=== PATIENT | male | born 1955 | race Caucasian/White ===

== ENCOUNTER 2016-09-17 08:28 | Inpatient (IN) | payer MEDICARE, BC ==
[2016-09-17] MEDS ORDERED: Magnesium Hydroxide LIQ* 30 ML UDC PO PRN (11:47)
[2016-09-17] MEDS ORDERED: Bisacodyl SUPP* 10 MG SUPP PR PRN (11:47)
[2016-09-17] MEDS ORDERED: Dextrose 50% Syringe 50 ML* 25 GM/50 ML SYRINGE IV PUSH PRN ×2 (11:59→12:01)
[2016-09-17] MEDS ORDERED: Insulin LISPRO* 1 UNITS UNIT SUBCUT ONE ×3 (12:02→17:00)
[2016-09-17] MEDS: Gabapentin CAP(*) 300 MG PO SCH ×3 (14:54→22:11)
[2016-09-17] MEDS: Heparin VIAL(*) 5000 UNITS/ML VIAL (FIVE THOUSAND) SUBCUT SCH ×2 (14:58→21:03)
[2016-09-17] MEDS ORDERED: Insulin LISPRO* 1 UNITS UNIT SUBCUT SCH ×2 (17:00)
[2016-09-17] MEDS: Insulin GLARGINE(*) 1 UNITS UNIT SUBCUT SCH (20:49)
[2016-09-17] MEDS ORDERED: Senna TAB PO PRN (21:00)
[2016-09-17] MEDS: Amoxicillin/Clavulanate TAB* 875 MG PO SCH (21:03)
[2016-09-17] MEDS: Docusate CAP* 100 MG PO SCH (22:53)
--- NOTE | 2016-09-18 00:19 | HP ---
ADMISSION HISTORY AND PHYSICAL: DATE OF ADMISSION: 09/17/16 REASON FOR ADMISSION: Right fvmvi-zvf-tqoe amputation. HISTORY OF PRESENT ILLNESS: Naveen Meeks is a 61-year-old insulin-dependent diabetic. He has had diabetes for about the past 12 years. He follows with Dr. Bear in [place]. He has multiple complications from diabetes including diabetic peripheral neuropathy. He apparently was involved in an accident about 2-1/2 years ago, where something was dropped on his right foot. He has had multiple surgeries on his right foot with at least 3 toe amputations. He has had recurrent infections over the last several years. [facility]. He saw a doctor at [facility], Dr. Felder. Dr. Felder recommended a below- the-knee amputation. He was admitted to [facility] on September 03. He was taken to the operating room for right giqik-kih-varc amputation that day. He went to the nursing floor and was getting over his surgery, but then developed left wrist pain, where an IV site was. There was a lot of concern for septic arthritis. The joint was aspirated and he underwent a wrist arthroscopy, neither of which demonstrated signs of infection. He was given a course of Augmentin. He was then felt to be medically stable to begin rehabilitation. He is now being admitted for inpatient rehab, so that he might return to independent living. PAST MEDICAL HISTORY: Significant for the aforementioned diabetes. He has a history of diabetic peripheral neuropathy as well. He has a Charcot foot on the left side. He has had chronic osteomyelitis on the right foot. He has a history of obesity. CURRENT MEDICATIONS: Include Lantus insulin 60 mg twice a day. He is also on lispro insulin, he gets 30 mg with each meal. He is on heparin for DVT prophylaxis. He takes lisinopril for blood pressure, Lasix, Neurontin 1200 mg 4 times a day, and he is on aspirin 81 mg daily. ALLERGIES: The patient has no known drug allergies. SOCIAL HISTORY: He is a nonsmoker and nondrinker. Lives by himself in a house on [address], but he stays on one floor. He has friends who are willing to get groceries for him. PHYSICAL EXAMINATION VITAL SIGNS: The patient's temperature is 98.1, blood pressure is 129/75, pulse 71, and respirations 18. HEENT: Extraocular movements are intact. Tongue is midline. NECK: Supple. LUNGS: Sounded clear to auscultation bilaterally. HEART: Sounds were regular. S1, S2 were audible. ABDOMEN: Soft and nontender. EXTREMITIES: His right leg has a oqlbz-wxl-pgzy amputation. The left wrist was examined. It looked clean. Peripheral pulses were intact in that wrists. His left foot was examined. He has a collapsed arch on the left foot. NEUROLOGIC: He is awake, alert, and oriented. He had decreased sensation over the left foot. Muscle strength is about 4+/5 in upper and lower extremities. FUNCTIONAL EXAM: He transfers with moderate amount of assistance. ASSESSMENT: Right aakjc-ywn-mbwz amputation. PLAN/RECOMMENDATIONS: We are going to integrate him into a comprehensive and therapeutic rehab program. We will have the following goals: 1. Physical Therapy will work with the patient. They are going to work on functional transfer training, ambulation training with a walker. 2. Occupational Therapy will see the patient. They are going to work on his activities of daily living including toileting and toilet transfers. 3. Heparin for DVT prophylaxis. 4. For his diabetes, we are going to continue him on Lantus insulin 60 mg twice a day as well as lispro 30 mg with each meals. We may need to adjust this as we go. 5. For his infection in his left wrist, we are going to continue the Augmentin. We will stop on September 19. 6. Adequate analgesia. 7. His bowels will be regulated. 8. data services developer will be closely involved to make sure that any services and equipment that the patient requires are in place prior to discharge. 9. Family training as appropriate. 10. Advance directives: The patient is a full code. He has a health care proxy. ESTIMATED LENGTH OF STAY: Ten days. [id number]/CPS #: [id number] FAM
[2016-09-18] MEDS: Heparin VIAL(*) 5000 UNITS/ML VIAL (FIVE THOUSAND) SUBCUT SCH ×3 (06:01→22:02)
[2016-09-18] MEDS: Lisinopril TAB* 5 MG PO SCH (07:48)
[2016-09-18] MEDS: Furosemide TAB* 40 MG PO SCH (07:48)
[2016-09-18] MEDS: Amoxicillin/Clavulanate TAB* 875 MG PO SCH ×2 (07:48→21:21)
[2016-09-18] MEDS: Gabapentin CAP(*) 300 MG PO SCH ×4 (07:48→21:20)
[2016-09-18] MEDS: Aspirin EC Low Dose* 81 MG TAB.EC PO SCH (07:48)
[2016-09-18] MEDS: Docusate CAP* 100 MG PO SCH ×2 (07:48→21:21)
[2016-09-18] MEDS: Insulin LISPRO* 1 UNITS UNIT SUBCUT SCH ×3 (07:50→17:14)
[2016-09-18] MEDS ORDERED: Insulin LISPRO* 1 UNITS UNIT SUBCUT SCH ×3 (08:00→12:00)
[2016-09-18] MEDS: Insulin GLARGINE(*) 1 UNITS UNIT SUBCUT SCH ×2 (08:53→22:00)
[2016-09-18 10:59] LABS: Hematocrit 39 % (42-52); Hemoglobin 12.3 g/dl (14.0-18.0); Mean Corpuscular HGB Conc 32 g/dl (31-36); Mean Corpuscular Hemoglobin 26 pg (27-31); Mean Corpuscular Volume 82 fL (80-94); Mean Platelet Volume 6 um3 (7.4-10.4); Red Blood Count 4.72 10^6/ul (4.0-5.4); Red Cell Distribution Width 18 % (10.5-15); White Blood Count 12.4 10^3/ul (3.5-10.8)
[2016-09-18] MEDS: Acetaminophen TAB* 325 MG PO PRN ×2 (11:48→19:39)
[2016-09-18 12:13] LABS: Albumin 3.7 g/dL (3.2-5.2); BUN/Creatinine Ratio 26.5 (8-20); EGFR African American 121.5 (>60); EGFR Non-African American 94.5 (>60); Globulin 3.7 g/dL (2-4); Potassium 4.6 mmol/L (3.5-5.0); Total Bilirubin 0.3 mg/dL (0.2-1.0); Total Protein 7.4 g/dL (6.4-8.9)
[2016-09-19] MEDS: Heparin VIAL(*) 5000 UNITS/ML VIAL (FIVE THOUSAND) SUBCUT SCH ×3 (05:25→21:15)
[2016-09-19] MEDS: Acetaminophen TAB* 325 MG PO PRN ×2 (06:06→16:36)
[2016-09-19] MEDS: Docusate CAP* 100 MG PO SCH ×2 (07:42→21:05)
[2016-09-19] MEDS: Gabapentin CAP(*) 300 MG PO SCH ×4 (07:42→21:04)
[2016-09-19] MEDS: Amoxicillin/Clavulanate TAB* 875 MG PO SCH ×2 (07:42→21:04)
[2016-09-19] MEDS: Furosemide TAB* 40 MG PO SCH (07:42)
[2016-09-19] MEDS: Lisinopril TAB* 5 MG PO SCH (07:43)
[2016-09-19] MEDS: Aspirin EC Low Dose* 81 MG TAB.EC PO SCH (07:43)
[2016-09-19] MEDS: Insulin GLARGINE(*) 1 UNITS UNIT SUBCUT SCH ×2 (07:44→21:16)
[2016-09-19] MEDS: Insulin LISPRO* 1 UNITS UNIT SUBCUT SCH ×3 (07:45→17:35)
[2016-09-19] MEDS ORDERED: Insulin LISPRO* 1 UNITS UNIT SUBCUT ONE (17:00)
[2016-09-20] MEDS: Acetaminophen TAB* 325 MG PO PRN ×3 (04:45→21:03)
[2016-09-20] MEDS: Heparin VIAL(*) 5000 UNITS/ML VIAL (FIVE THOUSAND) SUBCUT SCH ×3 (04:45→21:30)
[2016-09-20] MEDS: Insulin GLARGINE(*) 1 UNITS UNIT SUBCUT SCH ×2 (08:02→21:04)
[2016-09-20] MEDS: Insulin LISPRO* 1 UNITS UNIT SUBCUT SCH ×3 (08:03→17:07)
[2016-09-20] MEDS: Lisinopril TAB* 5 MG PO SCH (08:51)
[2016-09-20] MEDS: Docusate CAP* 100 MG PO SCH ×2 (08:52→21:04)
[2016-09-20] MEDS: Gabapentin CAP(*) 300 MG PO SCH ×2 (08:52→12:36)
[2016-09-20] MEDS: Furosemide TAB* 40 MG PO SCH (08:52)
[2016-09-20] MEDS: Aspirin EC Low Dose* 81 MG TAB.EC PO SCH (08:52)
--- NOTE | 2016-09-20 10:54 | PMRUTEAM ---
PMRU: Goals Current Status: Nursing: Current Status Skin Deviations [Left Lower Abrasion Leg] Skin Deviations [Right Leg] Incision Skin Deviations [Left Toe] Other Skin Deviations [Left Wrist] Incision Skin Deviation Description [ small abrasions scabed over Left Lower Leg] Skin Deviation Description [ small amount of drainage Right Leg] Skin Deviation Description [ scab Left Toe] Skin Deviation Description [ ann intact, no drainage or redness noted Left Wrist] Physical Therapy: Current Status Bed Mobility Assistance Supervision Transfer Moblility Assistance min A Transfer/Bed Mobility Slide Board Recommended Devices Ambulation Assistance Unable Ambulation Assistive Devices Platform Walker Stairs Assistance Not Tested Curb Not Tested Manual Wheelchair Control/ Bilateral UE's Technique Wheelchair Propulsion Ability Standby Assistance Wheelchair Distance (ft) 150' Occupational Therapy: Current Status Upper Body Dressing Supervision Lower Body Dressing Supervision Bathing Supervision Toileting Supervision Toilet Transfer Supervision Eating Independent Rec Therapy: Current Status Summary of Assessment and Pt. was extremely interactive and positive Clinical Impression throughout conversation. Pt. identifies with numerous activities of interest and active involvement in them. Pt. was open to continued leisure visits. Treatment Goals Pt. will engage in leisure activities while on the unit. Treatment Plan Provide RT services and encourage involvement. Social Work: Current Status Discharge Plan return home with home care svs and support from friends Potential for Family Training TBD Anticipated Discharge Home Destination Discharge With home care svs and support from friends Goals: Physical Therapy: Initial Goals Bed Mobility Assistance Independent Transfer Mobility Assistance Independent Transfer/Bed Mobility scoot pivot with slide board Recommended Devices Ambulation unable Ambulation Recommended Devices unable Ambulation Distance na Wheelchair Propulsion Ability Independent Wheelchair Distance (ft) 150 Occupational Therapy: Initial Goals Goals to be Completed in (Days 3-7 ) Upper Body Bathing Routine Independent Lower Body Bathing Routine Modified Independent with Upper Body Dressing Routine Independent Lower Body Dressing Routine Modified Independent with Toilet Hygeine and Clothing Modified Independent with Management Routine Toilet Transfer Routine Modified Independent with Step-In Shower Transfer Modified Independent with Routine Functional Transfers for ADL Modified Independent with Grooming Routine Independent Feeding Routine Independent Light Housekeeping Tasks Modified Independent with Social Work: Goals Discharge Plan return home with home care svs and support from friends Potential for Family Training TBD Anticipated Discharge Home Destination Discharge With home care svs and support from friends Care Plan: Care Plan ADL's - Improve/Maintain Start: 09/18/16 11:44 Freq: QSHIFT Status: Active Target: Activity Type Activity Date Activity User E-Sign Co-Sign Detail Recorded Client Recorded Date Recorded By Document 09/19/16 14:14 [id number] 09/19/16 14:14 [id number] 09/19/16 14:14 PMRU Outcome: ADL's/ADL Transfers Orders/Interventions Occupational Therapy Evaluation & Treatment Communication Tool in Patient Room Device Yes: left forearm platform walker , slide board Patient to receive OT 5x/wk for 60-120 Therex min/day Self Care Management Group Therapy UE/LE ADL's with Assist Yes: [facility] ADL Transfers with Assist Yes: [facility] Toileting: Transfers,Clothing Management Yes: [employer] ,Hygeine w/Assist Light Kitchen/Laundry w/Assist Yes: [employer] Progression Toward Outcome/Goals Progressing Communication-Improve/Maintain Start: 09/18/16 13:18 Freq: QSHIFT Status: Active Target: Activity Type Activity Date Activity User E-Sign Co-Sign Detail Recorded Client Recorded Date Recorded By Document 09/20/16 00:03 [id number] 09/20/16 00:03 [id number] 09/20/16 00:03 PMRU Outcome: Communication/Cognitive Status Outcome/Goals Use Comm Tools/ Devices Makes Needs Known Effectively Progression Toward Outcomes/Goals Progressing Coping/Psych-Improve/Maintain Start: 09/18/16 13:18 Freq: QSHIFT Status: Active Target: Activity Type Activity Date Activity User E-Sign Co-Sign Detail Recorded Client Recorded Date Recorded By Document 09/20/16 00:03 [id number] 09/20/16 00:03 [id number] 09/20/16 00:03 PMRU Outcome: Coping/Psychosocial Coping Outcome/Goals Verbalization of Acceptance of Rehab Admit Verbalization of Sense of Control Over Health Status Utilization of Appropriate Problem Solving Techniques Willingness to Participate in Treatment Plan and Basic Needs Utilization of Available Support Systems Absence of Destructive Behavior to Self/Others Psychosocial Outcome/Goals Maintain/ Improve Emotional Health Demonstrates Knowledge of Healthy Coping Mechanisms Available Cooperate/ Participate in Plan Progression Toward Outcome/Goals - Progressing Coping Progression Toward Outcome/Goals - Progressing Psychosocial Discharge Planning Start: 09/18/16 00:13 Freq: QSHIFT Status: Active Target: Activity Type Activity Date Activity User E-Sign Co-Sign Detail Recorded Client Recorded Date Recorded By Document 09/20/16 00:02 [id number] 09/20/16 00:02 [id number] 09/20/16 00:02 Outcome: Discharge Planning Outcome/Goals Demonstrates Understanding of Discharge Plan Progression Toward Outcome/Goals Progressing Infection-Improve/Maintain Start: 09/18/16 00:13 Freq: QSHIFT Status: Active Target: Activity Type Activity Date Activity User E-Sign Co-Sign Detail Recorded Client Recorded Date Recorded By Document 09/20/16 00:03 [id number] 09/20/16 00:03 [id number] 09/20/16 00:03 Outcome: Infection Outcome/Goals Remain Free of Infection Understand Infection Prevention Strategies Achieve Optimal Health Status Related to Diagnosis Improve or Eliminate Infection Progression Toward Outcome/Goals Progressing Metabolic Status- Improve/Maintain Start: 09/18/16 13:18 Freq: QSHIFT Status: Active Target: Activity Type Activity Date Activity User E-Sign Co-Sign Detail Recorded Client Recorded Date Recorded By Document 09/20/16 00:03 [id number] 09/20/16 00:03 [id number] 09/20/16 00:03 PMRU Outcome: Metabolic Status Have Fingersticks Been Ordered Yes Fingerstick Order Frequency AC & HS Outcome/Goals Maintain/ Improve Metabolic Status Demonstrate Knowledge of Prevention/ Treatment of Metabolic Imbalances Progression Toward Outcome/Goals Progressing Mobility- Improve/Maintain Start: 09/17/16 18:02 Freq: QSHIFT Status: Active Target: Activity Type Activity Date Activity User E-Sign Co-Sign Detail Recorded Client Recorded Date Recorded By Document 09/19/16 12:35 [id number] 09/19/16 12:35 [id number] 09/19/16 12:35 PM Outcome: Mobility Physical Therapy Evaluation and Yes Treatment Activity OOB with Assistance Yes NWB Yes: RLE Device Yes Assistance Yes Patient to be seen 5x/wk for 60-120 min/ Therex day for: Mobility Training Gait Training W/C Mobility Balance Other Outcome/Goals Improve Mobility Status Demonstrates Proper Use of Assistive Devices Free from Complications of Immobility Progression Toward Outcome/Goals Progressing Bed Mobility Yes: independent Transfers Yes: independent with rolling/ platform walker . Gait x ft Yes: independent 50 feet with rolling/ platform walker . W/C Mobility x ft Yes: independent 150 feet with BUE. Mobility-Improve/Maintain Start: 09/18/16 00:13 Freq: QSHIFT Status: Active Target: Activity Type Activity Date Activity User E-Sign Co-Sign Detail Recorded Client Recorded Date Recorded By Document 09/20/16 00:02 [id number] 09/20/16 00:02 [id number] 09/20/16 00:02 Outcome: Mobility Outcome/Goals Improve Mobility Status Demonstrates Proper Use of Assistive Devices Progression Toward Outcome/Goals Progressing Pain/Comfort- Improve/Maintain Start: 09/18/16 13:18 Freq: QSHIFT Status: Active Target: Activity Type Activity Date Activity User E-Sign Co-Sign Detail Recorded Client Recorded Date Recorded By Document 09/20/16 00:03 [id number] 09/20/16 00:03 [id number] 09/20/16 00:03 PMRU Outcome: Pain/Comfort Outcome/Goals Demonstrates Knowledge and Use of Available Comfort Measures Achieves Acceptable Comfort/Pain Level as Determined by Patient/Condit Maintain Comfort Level Allowing Patient to Fully Participate in Rehab Progression Toward Outcome/Goals Progressing Skin- Improve/Maintain Start: 09/18/16 13:18 Freq: QSHIFT Status: Active Target: Activity Type Activity Date Activity User E-Sign Co-Sign Detail Recorded Client Recorded Date Recorded By Document 09/20/16 00:03 [id number] [id number] 09/20/16 00:03 [id number] 09/20/16 00:03 PMRU Outcome: Skin Skin Risk Level Medium Skin Orders Dressing Change Outcome/Goals Maintain/ Improve Skin Intergrity Maintain/ Improve Wound Status Surgical Incisions Healing Progression Toward Outcome/Goals Progressing Skin-Improve/Maintain Start: 09/18/16 00:13 Freq: QSHIFT Status: Complete Target: Activity Type Activity Date Activity User E-Sign Co-Sign Detail Recorded Client Recorded Date Recorded By Document 09/18/16 00:14 [id number] 09/18/16 00:15 [id number] 09/18/16 00:14 Outcome: Skin Outcome/Goals Maintain/ Improve Skin Intergrity Maintain/ Improve Wound Status Surgical Incisions Healing Progression Toward Outcome/Goals Progressing Medicine Note: Length of Stay: [5 more days] Anticipated Discharge Destination: Home Tentative Discharge Date: [09/25/16] Discharged to: [home]
[2016-09-20] MEDS: Gabapentin CAP(*) 400 MG PO SCH ×2 (14:33→21:02)
[2016-09-21] MEDS: Acetaminophen TAB* 325 MG PO PRN ×4 (02:32→22:10)
[2016-09-21] MEDS: Heparin VIAL(*) 5000 UNITS/ML VIAL (FIVE THOUSAND) SUBCUT SCH ×3 (05:27→21:10)
[2016-09-21] MEDS: Furosemide TAB* 40 MG PO SCH (07:50)
[2016-09-21] MEDS: Lisinopril TAB* 5 MG PO SCH (07:50)
[2016-09-21] MEDS: Aspirin EC Low Dose* 81 MG TAB.EC PO SCH (07:51)
[2016-09-21] MEDS: Gabapentin CAP(*) 400 MG PO SCH ×3 (07:51→20:44)
[2016-09-21] MEDS: Docusate CAP* 100 MG PO SCH ×2 (07:52→20:44)
[2016-09-21] MEDS: Insulin GLARGINE(*) 1 UNITS UNIT SUBCUT SCH ×2 (07:52→21:10)
[2016-09-21] MEDS: Insulin LISPRO* 1 UNITS UNIT SUBCUT SCH ×3 (07:53→16:55)
[2016-09-22] MEDS: Acetaminophen TAB* 325 MG PO PRN ×2 (04:18→20:23)
[2016-09-22] MEDS: Heparin VIAL(*) 5000 UNITS/ML VIAL (FIVE THOUSAND) SUBCUT SCH ×3 (07:30→21:34)
[2016-09-22] MEDS: Furosemide TAB* 40 MG PO SCH (07:51)
[2016-09-22] MEDS: Lisinopril TAB* 5 MG PO SCH (07:51)
[2016-09-22] MEDS: Aspirin EC Low Dose* 81 MG TAB.EC PO SCH (07:52)
[2016-09-22] MEDS: Gabapentin CAP(*) 400 MG PO SCH (07:52)
[2016-09-22] MEDS: Docusate CAP* 100 MG PO SCH ×2 (07:55→20:24)
[2016-09-22] MEDS: Insulin LISPRO* 1 UNITS UNIT SUBCUT SCH ×3 (07:55→18:10)
[2016-09-22] MEDS: Insulin GLARGINE(*) 1 UNITS UNIT SUBCUT SCH ×2 (07:56→20:54)
[2016-09-22] MEDS: Gabapentin CAP(*) 300 MG PO SCH ×3 (10:21→20:22)
[2016-09-23] MEDS: Acetaminophen TAB* 325 MG PO PRN ×3 (01:50→12:42)
[2016-09-23] MEDS: Heparin VIAL(*) 5000 UNITS/ML VIAL (FIVE THOUSAND) SUBCUT SCH ×3 (05:00→21:11)
[2016-09-23] MEDS: Gabapentin CAP(*) 300 MG PO SCH ×3 (08:05→21:02)
[2016-09-23] MEDS: Furosemide TAB* 40 MG PO SCH (08:05)
[2016-09-23] MEDS: Aspirin EC Low Dose* 81 MG TAB.EC PO SCH (08:05)
[2016-09-23] MEDS: Lisinopril TAB* 5 MG PO SCH (08:06)
[2016-09-23] MEDS: Docusate CAP* 100 MG PO SCH ×2 (08:06→21:01)
[2016-09-23] MEDS: Insulin GLARGINE(*) 1 UNITS UNIT SUBCUT SCH ×2 (08:14→21:11)
[2016-09-23] MEDS: Insulin LISPRO* 1 UNITS UNIT SUBCUT SCH ×3 (08:14→17:23)
[2016-09-23] MEDS: oxyCODONE/Acetamin 5/325 MG* TAB PO PRN (18:15)
[2016-09-24] MEDS: oxyCODONE/Acetamin 5/325 MG* TAB PO PRN (00:03)
[2016-09-24] MEDS: Heparin VIAL(*) 5000 UNITS/ML VIAL (FIVE THOUSAND) SUBCUT SCH ×3 (05:59→21:29)
[2016-09-24] MEDS: Aspirin EC Low Dose* 81 MG TAB.EC PO SCH (07:25)
[2016-09-24] MEDS: Lisinopril TAB* 5 MG PO SCH (07:25)
[2016-09-24] MEDS: Furosemide TAB* 40 MG PO SCH (07:26)
[2016-09-24] MEDS: Gabapentin CAP(*) 300 MG PO SCH ×3 (07:26→21:22)
[2016-09-24] MEDS: Insulin LISPRO* 1 UNITS UNIT SUBCUT SCH ×3 (07:26→17:13)
[2016-09-24] MEDS: Docusate CAP* 100 MG PO SCH ×2 (07:27→21:22)
[2016-09-24] MEDS: Insulin GLARGINE(*) 1 UNITS UNIT SUBCUT SCH ×2 (07:27→21:25)
[2016-09-24] MEDS: Acetaminophen TAB* 325 MG PO PRN ×3 (07:28→23:46)
[2016-09-24 08:02] LABS: Hematocrit 37 % (42-52); Hemoglobin 12.1 g/dl (14.0-18.0); Mean Corpuscular HGB Conc 33 g/dl (31-36); Mean Corpuscular Hemoglobin 26 pg (27-31); Mean Corpuscular Volume 80 fL (80-94); Mean Platelet Volume 7 um3 (7.4-10.4); Red Blood Count 4.66 10^6/ul (4.0-5.4); Red Cell Distribution Width 18 % (10.5-15); White Blood Count 10.4 10^3/ul (3.5-10.8)
[2016-09-24 08:18] LABS: Albumin 3.8 g/dL (3.2-5.2); BUN/Creatinine Ratio 29.1 (8-20); Calcium 10.2 mg/dL (8.6-10.3); EGFR African American 128.7 (>60); Globulin 3.6 g/dL (2-4); Potassium 4.2 mmol/L (3.5-5.0); Total Bilirubin 0.3 mg/dL (0.2-1.0); Total Protein 7.4 g/dL (6.4-8.9)
--- NOTE | 2016-09-24 12:36 | PMRUTEAM ---
PMRU: Goals Current Status: Nursing: Current Status Skin Deviations [Left Lower Abrasion Leg] Skin Deviations [Right Leg] Incision Skin Deviations [Left Toe] Abrasion Skin Deviations [Left Wrist] Previous Access Point Skin Deviation Description [ scabbed areas Left Lower Leg] Skin Deviation Description [ CATHIE wrap in place Right Leg] Skin Deviation Description [ scab Left Toe] Skin Deviation Description [ arthroscopic entry points Left Wrist] Physical Therapy: Current Status Bed Mobility Assistance Supervision Transfer Moblility Assistance Supervision Transfer/Bed Mobility None,Rolling Walker,Slide Board Recommended Devices Ambulation Assistance Not Tested,Unable Ambulation Assistive Devices Platform Walker Stairs Assistance Not Tested Curb Not Tested Manual Wheelchair Control/ Bilateral UE's Technique Wheelchair Propulsion Ability Independent Wheelchair Distance (ft) 500' Objective Comments R ue and L le 150' Occupational Therapy: Current Status Upper Body Dressing Independent Lower Body Dressing Independent Bathing Independent Toileting Ind with Adaptive Equip Toilet Transfer Ind with Adaptive Equip Shower Transfer Ind with Adaptive Equip Eating Independent Rec Therapy: Current Status Summary of Assessment and RT assessment complete and pt. is aware of Clinical Impression services. Pt. is in good spirits, bright, and interactive during leisure visits. Treatment Goals Pt. will engage in leisure activities while on the unit. Treatment Plan Provide RT services and encourage involvement. Social Work: Current Status Discharge Plan return home with home care svs and support from friends Potential for Family Training n/a Anticipated Discharge Home Destination Discharge With [facility] vns and support from friends Nutrition: Current Status Monitoring Patient eating well (80-100% meals) and meeting needs. Blood sugars 108-192 over the past 24 hours -patient on Lantus and Humalog with meals. Patient with normal bowel pattern-last bowel movement . No further nutrition intervention planned at this time. Goals: Physical Therapy: Initial Goals Bed Mobility Assistance Independent Transfer Mobility Assistance Independent Transfer/Bed Mobility Rolling Walker,Platform Walker Recommended Devices Ambulation Independent Ambulation Recommended Devices Rolling Walker,Platform Walker Ambulation Distance 50 Wheelchair Propulsion Ability Independent Wheelchair Distance (ft) 150 Physical Therapy: Updated Goals Transfer/Bed Mobility Rolling Walker,Platform Walker Recommended Devices Occupational Therapy: Initial Goals Goals to be Completed in (Days 3-7 ) Upper Body Bathing Routine Independent Lower Body Bathing Routine Modified Independent with Upper Body Dressing Routine Independent Lower Body Dressing Routine Modified Independent with Toilet Hygeine and Clothing Modified Independent with Management Routine Toilet Transfer Routine Modified Independent with Step-In Shower Transfer Modified Independent with Routine Functional Transfers for ADL Modified Independent with Grooming Routine Independent Feeding Routine Independent Light Housekeeping Tasks Modified Independent with Nutrition: Goals Intervention Goals 1. adequate po intake to support post BKA healing and maintain lean body mass 2. glycemic control within inpatient parameters and without s/sx hypo- or hyperglycemia Social Work: Goals Discharge Plan return home with home care svs and support from friends Potential for Family Training n/a Anticipated Discharge Home Destination Discharge With [place] and support from friends Care Plan: Care Plan ADL's - Improve/Maintain Start: 09/18/16 11:44 Freq: QSHIFT Status: Active Target: Activity Type Activity Date Activity User E-Sign Co-Sign Detail Recorded Client Recorded Date Recorded By Document 09/19/16 14:14 [id number] 09/19/16 14:14 [id number] 09/19/16 14:14 PMRU Outcome: ADL's/ADL Transfers Orders/Interventions Occupational Therapy Evaluation & Treatment Communication Tool in Patient Room Device Yes: left forearm platform walker , slide board Patient to receive OT 5x/wk for 60-120 Therex min/day Self Care Management Group Therapy UE/LE ADL's with Assist Yes: [facility] ADL Transfers with Assist Yes: [facility] Toileting: Transfers,Clothing Management Yes: [facility] ,Hygeine w/Assist Light Kitchen/Laundry w/Assist Yes: [employer] Progression Toward Outcome/Goals Progressing Communication-Improve/Maintain Start: 09/18/16 13:18 Freq: QSHIFT Status: Active Target: Activity Type Activity Date Activity User E-Sign Co-Sign Detail Recorded Client Recorded Date Recorded By Document 09/24/16 01:10 [id number] 09/24/16 01:13 [id number] 09/24/16 01:10 PMRU Outcome: Communication/Cognitive Status Outcome/Goals Use Comm Tools/ Devices Makes Needs Known Effectively Progression Toward Outcomes/Goals Progressing Coping/Psych-Improve/Maintain Start: 09/18/16 13:18 Freq: QSHIFT Status: Active Target: Activity Type Activity Date Activity User E-Sign Co-Sign Detail Recorded Client Recorded Date Recorded By Document 09/24/16 01:10 [id number] 09/24/16 01:13 [id number] 09/24/16 01:10 PMRU Outcome: Coping/Psychosocial Coping Outcome/Goals Verbalization of Acceptance of Rehab Admit Verbalization of Sense of Control Over Health Status Utilization of Appropriate Problem Solving Techniques Willingness to Participate in Treatment Plan and Basic Needs Utilization of Available Support Systems Absence of Destructive Behavior to Self/Others Psychosocial Outcome/Goals Maintain/ Improve Emotional Health Demonstrates Knowledge of Healthy Coping Mechanisms Available Cooperate/ Participate in Plan Progression Toward Outcome/Goals - Progressing Coping Progression Toward Outcome/Goals - Progressing Psychosocial Discharge Planning Start: 09/18/16 00:13 Freq: QSHIFT Status: Active Target: Activity Type Activity Date Activity User E-Sign Co-Sign Detail Recorded Client Recorded Date Recorded By Document 09/24/16 01:10 [id number] 09/24/16 01:13 [id number] 09/24/16 01:10 Outcome: Discharge Planning Outcome/Goals Demonstrates Understanding of Discharge Plan Other Outcome/Goals Go to appointment at 1030am Monday 09/25 for f/u of left wrist Progression Toward Outcome/Goals Progressing Infection-Improve/Maintain Start: 09/18/16 00:13 Freq: QSHIFT Status: Complete Target: Activity Type Activity Date Activity User E-Sign Co-Sign Detail Recorded Client Recorded Date Recorded By Document 09/23/16 16:25 [id number] 09/23/16 16:25 [id number] 09/23/16 16:25 Outcome: Infection Outcome/Goals Remain Free of Infection Outcome/Goals Met Remains Free of Infection Metabolic Status- Improve/Maintain Start: 09/18/16 13:18 Freq: QSHIFT Status: Active Target: Activity Type Activity Date Activity User E-Sign Co-Sign Detail Recorded Client Recorded Date Recorded By Document 09/24/16 01:10 [id number] 09/24/16 01:13 [id number] 09/24/16 01:10 PMRU Outcome: Metabolic Status Have Fingersticks Been Ordered Yes Fingerstick Order Frequency AC & HS Outcome/Goals Maintain/ Improve Metabolic Status Demonstrate Knowledge of Prevention/ Treatment of Metabolic Imbalances Progression Toward Outcome/Goals Progressing Mobility- Improve/Maintain Start: 09/17/16 18:02 Freq: QSHIFT Status: Active Target: Activity Type Activity Date Activity User E-Sign Co-Sign Detail Recorded Client Recorded Date Recorded By Document 09/23/16 11:23 [id number] 09/23/16 11:23 [id number] 09/23/16 11:23 PMRU Outcome: Mobility Physical Therapy Evaluation and Yes Treatment Activity OOB with Assistance Yes NWB Yes: RLE Device Yes Assistance Yes Patient to be seen 5x/wk for 60-120 min/ Therex day for: Mobility Training Gait Training W/C Mobility Balance Other Outcome/Goals Improve Mobility Status Demonstrates Proper Use of Assistive Devices Free from Complications of Immobility Progression Toward Outcome/Goals Progressing Bed Mobility Yes: independent Transfers Yes: independent with rolling/ platform walker . Gait x ft Yes: independent 50 feet with rolling/ platform walker . W/C Mobility x ft Yes: independent 150 feet with BUE. Mobility-Improve/Maintain Start: 09/18/16 00:13 Freq: QSHIFT Status: Active Target: Activity Type Activity Date Activity User E-Sign Co-Sign Detail Recorded Client Recorded Date Recorded By Document 09/24/16 01:10 [id number] 09/24/16 01:13 [id number] 09/24/16 01:10 Outcome: Mobility Outcome/Goals Improve Mobility Status Demonstrates Proper Use of Assistive Devices Progression Toward Outcome/Goals Progressing Pain/Comfort- Improve/Maintain Start: 09/18/16 13:18 Freq: QSHIFT Status: Complete Target: Activity Type Activity Date Activity User E-Sign Co-Sign Detail Recorded Client Recorded Date Recorded By Document 09/23/16 16:25 [id number] 09/23/16 16:25 [id number] 09/23/16 16:25 PMRU Outcome: Pain/Comfort Outcome/Goals Demonstrates Knowledge and Use of Available Comfort Measures Achieves Acceptable Comfort/Pain Level as Determined by Patient/Condit Maintain Comfort Level Allowing Patient to Fully Participate in Rehab Outcome/Goals Met Demonstrates Knowledge and Use of Available Comfort Measures Maintain Comfort Level Allowing Patient to Fully Participate in Rehab Skin- Improve/Maintain Start: 09/18/16 13:18 Freq: QSHIFT Status: Active Target: Activity Type Activity Date Activity User E-Sign Co-Sign Detail Recorded Client Recorded Date Recorded By Document 09/24/16 01:10 [id number] [id number] 09/24/16 01:13 [id number] 09/24/16 01:10 PMRU Outcome: Skin Skin Risk Level Medium Skin Orders Dressing Change Outcome/Goals Maintain/ Improve Skin Intergrity Maintain/ Improve Wound Status Surgical Incisions Healing Progression Toward Outcome/Goals Progressing Skin-Improve/Maintain Start: 09/18/16 00:13 Freq: QSHIFT Status: Complete Target: Activity Type Activity Date Activity User E-Sign Co-Sign Detail Recorded Client Recorded Date Recorded By Document 09/18/16 00:14 [id number] [id number] 09/18/16 00:15 [id number] 09/18/16 00:14 Outcome: Skin Outcome/Goals Maintain/ Improve Skin Intergrity Maintain/ Improve Wound Status Surgical Incisions Healing Progression Toward Outcome/Goals Progressing Medicine Note: Length of Stay: 1 day Anticipated Discharge Destination: Home Tentative Discharge Date: 09/25/16 Discharged to: Home
[2016-09-25] MEDS: Heparin VIAL(*) 5000 UNITS/ML VIAL (FIVE THOUSAND) SUBCUT SCH (05:20)
[2016-09-25] MEDS: Acetaminophen TAB* 325 MG PO PRN (05:26)
[2016-09-25 05:28] VITALS: BP 134/74
[2016-09-25] MEDS: Gabapentin CAP(*) 300 MG PO SCH (07:34)
[2016-09-25] MEDS: Furosemide TAB* 40 MG PO SCH (07:34)
[2016-09-25] MEDS: Aspirin EC Low Dose* 81 MG TAB.EC PO SCH (07:34)
[2016-09-25] MEDS: Lisinopril TAB* 5 MG PO SCH (07:34)
[2016-09-25] MEDS: Insulin LISPRO* 1 UNITS UNIT SUBCUT SCH (07:36)
[2016-09-25] MEDS: Docusate CAP* 100 MG PO SCH (07:36)
[2016-09-25] MEDS: Insulin GLARGINE(*) 1 UNITS UNIT SUBCUT SCH (07:37)
--- NOTE | 2016-09-26 16:04 | DS ---
DATE OF ADMISSION: 09/17/2016. DATE OF DISCHARGE: 09/25/2016. DISCHARGE DIAGNOSES: 1. Right below the knee amputation. 2. Left wrist arthroscopy for infection. 3. Diabetes mellitus. 4. Diabetic peripheral neuropathy. 5. Obesity. HISTORY OF PRESENT ILLNESS AND HOSPITAL COURSE: For a complete history of the events leading up to his rehab stay, please see the history and physical dictated by me on 09/17/2016. While on the rehab unit, the patient remained fairly stable from a medical point of view. His diabetes was treated with insulin, both Lantus and Lispro. He was ordered a stump appeals officer for his residual stump. The suture line appeared to be healing well. His Gabapentin dose was decreased at his request from 1200 mg four times a day, to 1200 mg three times a day, to 900 mg three times a day, to 600 mg three times a day. Further taper will happen after discharge. The patient otherwise was medically stable. He was seen by physical and occupational therapy and made good gains with both disciplines. With physical therapy at the time of admission, the patient required mod assist to do a transfer, he was able to propel a wheelchair , unable to ambulate. With occupational therapy, he was contact guard for toileting and mod assist for toilet transfers. By the time of discharge, the patient was independent in transfers, independent using the slide board, still unable to ambulate, independent with all of his activities of daily living. He was discharged home on 09/25/2016. DIET: Discharge diet was consistent carbohydrate. DISCHARGE MEDICATIONS: 1. Lopressor 25 mg twice a day. 2. Lisinopril 2.5 mg once a day. 3. Lantus insulin 60 units subcutaneously twice a day. 4. Lispro insulin 30 units subcutaneously with each meal. 5. Gabapentin 600 mg three times a day for 2 days, then decreasing his Gabapentin dose by one pill a day every 2 days until he is off. 6. Aspirin 81 mg daily. 7. [place] 3 fatty acids 1500 mg daily. SERVICES AFTER DISCHARGE: Through [facility]. He will have home nursing, home physical therapy, home occupational therapy and a home health aide. Follow-up with Dr. Recio at the [facility] as well as with Dr. Felder at [facility]. He will also follow-up with his primary care doctor, Dr. Bear. CC: Gagande[place], [place]* [id number]/[facility] #: [id number] FAM
== END 2016-09-25 10:30 | disposition home or self-care (01) | DRG 560 ==
LOC: PMRU 11:15
PROVIDERS: ADMIT Physical Medicine & Rehabilitation; ATTEND Physical Medicine & Rehabilitation
PROC: F07Z5ZZ Bed Mobility Treatment (ICD-10-PCS; principal; 2016-09-17)
PROC: F07Z9ZZ Gait Training/Functional Ambulation Treatment (ICD-10-PCS; 2016-09-17)
PROC: F07Z8ZZ Transfer Training Treatment (ICD-10-PCS; 2016-09-17)
PROC: F07Z4ZZ Wheelchair Mobility Treatment (ICD-10-PCS; 2016-09-17)
PROC: F08Z0ZZ Bathing/Showering Techniques Treatment (ICD-10-PCS; 2016-09-17)
PROC: F08Z1ZZ Dressing Techniques Treatment (ICD-10-PCS; 2016-09-17)
PROC: F08Z3ZZ Feeding/Eating Treatment (ICD-10-PCS; 2016-09-17)
DX: Z47.81 Encounter for orthopedic aftercare following surgical amputation (principal); Z68.41 Body mass index [BMI] 40.0-44.9, adult; E11.42 Type 2 diabetes mellitus with diabetic polyneuropathy; E11.610 Type 2 diabetes mellitus with diabetic neuropathic arthropathy; T82.7XXD Infection and inflammatory reaction due to other cardiac and vascular devices, implants and grafts, subsequent encounter; E66.9 Obesity, unspecified; X58.XXXD Exposure to other specified factors, subsequent encounter; Z79.4 Long term (current) use of insulin; Z79.01 Long term (current) use of anticoagulants; Z79.82 Long term (current) use of aspirin; Z79.899 Other long term (current) drug therapy; Z89.431 Acquired absence of right foot
CPT/HCPCS: 36415; 80053; 85025; A9270-GY; J1644

== ENCOUNTER 2019-09-27 16:59 | Observation (INO) | payer BC, MEDICARE ==
--- NOTE | 2019-09-27 17:10 | ED ---
HPI Cardiac - HPI Summary HPI Summary: Patient is a 64 y/o M presenting to the ED via EMS for a chief complaint of non- radiating chest pain that began on 09/23/19. Patient denies any fever. Lying down worsens the chest pain. The chest pain is resolved after taking diuretics. The chest pain is described as a pressure sensation. Patient was previously seen at [facility] on 09/27/19 for his symptoms and transferred to [facility]. Previously, patient had a recent influenza infection and pneumonia for which he has taken Levaquin. Initially, patient believed his influenza symptoms were returning. Patient has not been assessed for COVID-19. PMHx is significant for TIA, DM, HTN, CHF, shingles, but patient denies blood clots, CT, or stent placement. - History of Current Complaint Chief Complaint: EDChestPainROMI Stated Complaint: HEART PROBLEM PER EMS Time Seen by Provider: 09/27/19 17:04 Hx Obtained From: Patient Onset/Duration: Atraumatic, Resolved Timing: Constant Initial Severity: Moderate Current Severity: Moderate Pain Scale Used: 0-10 Numeric Chest Pain Radiates: No Character: Pressure/Squeezing Aggravating Factor(s): Recumbent Position Alleviating Factor(s): Other: - Diuretic Associated Signs and Symptoms: Positive: Chest Pain. Negative: Fever - Allergy/Home Medications Allergies/Adverse Reactions: Allergies Allergy/AdvReac Type Severity Reaction Status Date / Time No Known Allergies Allergy Verified 03/21/14 12:09 Home Medications: Home Medications Aspirin EC TAB* [Ecotrin EC Low Dose 81 MG*] 81 mg PO DAILY 09/27/19 [History Confirmed 09/27/19] Furosemide TAB* [Lasix TAB*] 20 mg PO DAILY 09/27/19 [History Confirmed 09/27/19 ] Insulin NPH Human Isophane [Novolin N Flexpen 100 UNITS/ML 3 ml x 5 Pens] 60 units SUBCUT TID 09/27/19 [History Confirmed 09/27/19] L.acidoph,Paracasei, B.lactis [Probiotic] 1 cap PO DAILY 09/27/19 [History Confirmed 09/27/19] Lisinopril TAB* [Prinivil TAB*] 10 mg PO DAILY 09/27/19 [History Confirmed 09/26] Multivit-Mins/Iron/Folic/Lycop [Centrum Ultra Mens] 1 tab PO DAILY 09/27/19 [ History Confirmed 09/27/19] Robinson-3 Fatty Acids (Nf) [Fish Oil (NF)] 1,250 mg PO DAILY 09/27/19 [History Confirmed 09/27/19] amLODIPine TAB* [Norvasc 5 mg TAB*] 10 mg PO DAILY 09/27/19 [History Confirmed 09/27/19] PMH/Surg Hx/FS Hx/Imm Hx Previously Healthy: Yes Endocrine/Hematology History: Reports: Hx Diabetes Denies: Hx Systemic Lupus Erythematosus Cardiovascular History: Reports: Hx Hypertension, Hx Valvular Heart Disease, Other Cardiovascular Problems/Disorders - viral cardiomyopathy Denies: Hx Congestive Heart Failure, Hx Pacemaker/ICD Respiratory History: Denies: Hx Asthma, Other Respiratory Problems/Disorders GI History: Denies: Other GI Disorders Comment Only: Hx Gall Bladder Disease - gallstones History: Denies: Hx Dialysis, Hx Renal Disease, Other Problems/Disorders Musculoskeletal History: Reports: Hx Arthritis - ALL OVER Denies: Other Musculoskeletal History Sensory History: Denies: Hx Contacts or Glasses, Hx Hearing Aid Opthamlomology History: Denies: Hx Contacts or Glasses Neurological History: Reports: Hx Peripheral Neuropathy, Hx Transient Ischemic Attacks (TIA) Psychiatric History: Reports: Hx Anxiety - Claustrophobia Denies: Hx Panic Disorder - Cancer History Hx Chemotherapy: No - Surgical History Surgical History: Yes Surgery Procedure, Year, and Place: 12/2012, ALL TOES AMPUTATED RIGHT FOOT, [facility] - THEN CAME TO [place] AND DR Morgan DID MORE SURGERY THEN WENT TO WOUND CLINIC @ [facility] RIGHT KNEE 1994, [facility]. 1994, SINUS SURGERY, [facility]. TONSILLECTOMY A CHILD. RBKA 09/03/16 at [place]. l wrist arthroscopy with debridement on 09/05/16 at [place] Hx Anesthesia Reactions: Yes - "wild man" - Immunization History Date of Tetanus Vaccine: Unk Date of Influenza Vaccine: Fall 2012 Infectious Disease History: Yes Infectious Disease History: Reports: Hx of Known/Suspected MRSA - , r ankle - Family History Known Family History: Negative: Diabetes - Social History Occupation: Retired Alcohol Use: None Hx Substance Use: No Substance Use Type: Reports: None Hx Tobacco Use: No Smoking Status (MU): Never Smoked Tobacco Have You Smoked in the Last Year: No Review of Systems Negative: Fever Positive: Chest Pain All Other Systems Reviewed And Are Negative: Yes Physical Exam - Summary Physical Exam Summary: Constitutional: Well-developed, Obese, Alert. (-) Distressed Skin: Warm, Dry HENT: Normocephalic; Atraumatic Eyes: Conjunctiva normal Neck: Musculoskeletal ROM normal neck. (-) JVD, (-) Stridor, (-) Tracheal deviation Cardio: Rhythm regular, rate normal, Heart sounds normal; Intact distal pulses; The pedal pulses are 2+ and symmetric. Radial pulses are 2+ and symmetric. (-) Murmur Pulmonary/Chest wall: Effort normal. (-) Respiratory distress, (-) Wheezes, (-) Rales Abd: Soft, (-) tenderness, (-) Distension, (-) Guarding, (-) Rebound Musculoskeletal: (-) Edema. Right lower prosthetic limb. Lymph: (-) Cervical adenopathy Neuro: Alert, Oriented x3 Psych: Mood and affect Normal Triage Information Reviewed: Yes Vital Signs Reviewed: Yes Procedures - Sedation Patient Received Moderate/Deep Sedation with Procedure: No Diagnostics - Laboratory Result Diagrams: 09/28/19 06:13 09/28/19 06:13 Lab Statement: Any lab studies that have been ordered have been reviewed, and results considered in the medical decision making process. - Radiology Chest X-ray Radiology Interpretation Completed By: ED Physician Summary of Radiographic Findings: Chest X-ray IMPRESSION: cardiomegaly and pulmonary edema. Reviewed and interpreted by Dr. Barreto, pending official radiology report. - EKG 17:23 Cardiac Rate: Other Rate - 97 BPM EKG Rhythm: Atrial Flutter ST Segment: Normal Ectopy: None Summary of EKG Findings: EKG at 17:23 shows atrial flutter with 97 BPM, no ischemic changes. Dr. Barreto has reviewed and interpreted this EKG. Disposition - Course Course Of Treatment: Patient is a 64 y/o M presenting to the ED via EMS for a chief complaint of non-radiating chest pain that began on 09/23/19. Patient denies any fever. The chest pain is described as a pressure sensation. Previously, patient had a recent influenza infection and pneumonia for which he has taken Levaquin. Initially, patient believed his influenza symptoms were returning. PMHx is significant for TIA, DM, HTN, CHF, shingles, but patient denies blood clots, CT, or stent placement. On exam, obese, right lower prosthetic limb. EKG at 17:23 shows atrial flutter with 97 BPM, no ischemic changes. Chest X-ray IMPRESSION: cardiomegaly and pulmonary edema. Laboratory abnormal findings: WBC 17.4, troponin I 0.16, BNP 132. All other abnormal lab results are not pertinent to current cc. At 17:40, Dr. oJdy Vidal reviewed the patients case and agrees to admit the patient to [facility] with a diagnosis of chest pain, pulmonary edema, elevated troponin, and atrial flutter. Patient will be admitted to [facility] with a diagnosis of chest pain, pulmonary edema, elevated troponin, and atrial flutter. - Diagnoses Provider Diagnoses: Pulmonary edema, Chest pain, Elevated troponin, Atrial flutter - Physician Notifications Discussed Care Of Patient With: Jody Vidal - At 17:40, Dr. Jody Vidal reviewed the patients case and agrees to admit the patient to [facility] with a diagnosis of chest pain, pulmonary edema, elevated troponin, and atrial flutter. Time Discussed With Above Provider: 17:40 Instructed by Provider To: Admit As Inpatient Discharge ED - Sign-Out/Discharge Documenting (check all that apply): Patient Departure - Admit - Discharge Plan Condition: Stable Disposition: ADMITTED TO [facility] - Billing Disposition and Condition Condition: STABLE Disposition: Admitted to [facility] - Attestation Statements Document Initiated by Ana Me: Yes Documenting Scribe: Savanna Cast Provider For Whom Scribe is Documenting (Include Credential): Harry Barreto DO Scribe Attestation: Savanna Lucas scribed for Harry Barreto DO on 09/28/19 at 0722. Scribe Documentation Reviewed: Yes Provider Attestation: The documentation as recorded by the Savanna reyes accurately reflects the service I personally performed and the decisions made by Harry stovall DO Status of Scribe Document: Viewed
[2019-09-27 17:41] LABS: ABS Basophils 0.2 10^3/ul (0-0.2); ABS Eosinophils 0.4 10^3/ul (0-0.6); ABS Lymphocytes 2.9 10^3/ul (1.0-4.8); ABS Monocytes 1.1 10^3/ul (0-0.8); ABS Neutrophils 12.8 10^3/ul (1.5-7.7); Eosinophil % 2.2 %; Hematocrit 42 % (42-52); Lymphocyte % 16.8 %; Mean Corpuscular HGB Conc 34 g/dL (31-36); Mean Corpuscular Hemoglobin 28 pg (27-31); Mean Corpuscular Volume 83 fL (80-94); Mean Platelet Volume 6.5 fL (7.4-10.4); Platelet Count 375 10^3/uL (150-450); Red Blood Count 5.05 10^6 /uL (4.18-5.48); Red Cell Distribution Width 16 % (10-15); White Blood Count 17.4 10^3/uL (3.5-10.8)
[2019-09-27] MEDS ORDERED: Al Hydrox/Mg Hydrox/Simet LIQ* 30 ML UDC PO PRN (17:58)
[2019-09-27] MEDS ORDERED: Acetaminophen TAB* 325 MG PO PRN (17:58)
[2019-09-27] MEDS ORDERED: Senna TAB 8.6 mg* TAB PO PRN (17:58)
[2019-09-27] MEDS ORDERED: Ondansetron INJ* 2 MG/ML VIAL IV PRN (17:58)
[2019-09-27 18:04] LABS: ALT 52 U/L (7-52); AST 32 U/L (13-39); Albumin 3.8 g/dL (3.2-5.2); Alkaline Phosphatase 127 U/L (34-104); Anion Gap 8 mmol/L (2-11); BUN/Creatinine Ratio 19.8 (8-20); Blood Urea Nitrogen 16 mg/dL (6-24); CO2 Carbon Dioxide 27 mmol/L (22-32); Calcium 9.4 mg/dL (8.6-10.3); Chloride 104 mmol/L (101-111); EGFR African American 116.5 (>60); EGFR Non-African American 96.2 (>60); Globulin 3.8 g/dL (2-4); Glucose 97 mg/dL (70-100); Magnesium 2.2 mg/dL (1.9-2.7); Potassium 3.7 mmol/L (3.5-5.0); Sodium 139 mmol/L (135-145); Total Protein 7.6 g/dL (6.4-8.9)
[2019-09-27] MEDS ORDERED: Azithromycin TAB* 250 MG PO ONE (18:27)
[2019-09-27] MEDS ORDERED: Potassium Chlor TAB* 20 MEQ TAB.ER PO ONE (18:30)
[2019-09-27] MEDS ORDERED: Dextrose 50% Syringe 50 ML* 25 GM/50 ML SYRINGE IV PUSH PRN (18:31)
[2019-09-27] MEDS ORDERED: Metoprolol Tartrate IV* 1 MG/ML 5 ML VIAL IV PRN (18:32)
[2019-09-27 18:52] LABS: Troponin I 0.09 ng/mL (<0.03)
[2019-09-27 18:53] LABS: Influenza A Molecular Negative (Negative); Influenza B Molecular Negative (Negative)
[2019-09-27 19:07] LABS: C Reactive Protein 59.45 mg/L (<8.01)
[2019-09-27] MEDS ORDERED: Lisinopril TAB* 10 MG PO ONE (19:23)
[2019-09-27] MEDS ORDERED: Enoxaparin(*) 40 MG/0.4 ML SYR SUBCUT SCH (19:30)
[2019-09-27] MEDS ORDERED: cefTRIAXone(*) 1 GM in NS 0.9% 50 ML* 50 ML IVPB SCH (20:00)
[2019-09-27] MEDS: Metoprolol Tartrate TAB* 25 MG PO SCH (20:25)
[2019-09-27] MEDS: DOXYcycline CAP(*) 100 MG PO SCH (20:25)
[2019-09-27 20:32] LABS: Troponin I 0.09 ng/mL (<0.03)
[2019-09-27] MEDS ORDERED: Cefdinir cap* 300 MG CAP PO SCH (21:00)
--- NOTE | 2019-09-27 21:08 | HP ---
CC: Dr. Deng * HISTORY AND PHYSICAL: DATE OF ADMISSION: 09/27/19 PROVIDER: BRYAN Ramires ATTENDING PHYSICIAN WHILE IN THE HOSPITAL: Dr. Romario Resendiz * (dictated by BRYAN Ramires). PRIMARY CARE PHYSICIAN: Dr. Deng. CHIEF COMPLAINT: Shortness of breath. HISTORY OF PRESENT ILLNESS: Naveen Meeks is a 64-year-old white male with past medical history significant for hypertension, diabetes mellitus type 2, morbid obesity and heart failure with reduced ejection fraction, EF of 25% in 2013, who presents to the emergency department today for chest tightness and shortness of breath. The patient initially started feeling chest tightness on 09/21/19 and then started developing shortness of breath with ambulation 2 days later. He already was feeling short of breath when lying down. He decided to call his primary care provider about this on 09/24/19 who directed him to the emergency department. The patient went to [facility] and tells me that he had a chest x-ray that was concerning for pneumonia and he was prescribed levofloxacin and he has been taking it since then. Unfortunately, I am unable to review the chest x- ray from [facility]. The patient said that since taking his antibiotic, he still was not feeling improved and decided to report back to the emergency department today. Again after calling his primary care provider for advice, he went to [facility] and he was then transferred to our emergency department. Reportedly in [place], he received 40 mg of IV Lasix prior to coming here. The patient tells me that his chest tightness has since been relieved since he received IV Lasix at [facility] today. He denies abdominal pain, nausea , vomiting, diarrhea or issues with urination. He has not been having a cough or symptomatic fevers or chills and denies recent contacts with known COVID positive individuals. PAST MEDICAL HISTORY: 1. Heart failure with reduced ejection fraction, most recent EF of 25% in 2013. 2. Hypertension. 3. Diabetes mellitus type 2, insulin dependent. 4. History of peripheral neuropathy. PAST SURGICAL HISTORY: 1. Right [id number] amputation. 2. Sinus surgery. 4. Tonsillectomy. HOME MEDICATIONS: 1. Acidophilus probiotic 1 cap p.o. daily. 2. Aspirin 81 mg p.o. daily. 3. Multivitamin tab 1 tab p.o. daily. 4. Amlodipine 10 mg p.o. daily. 5. Fish oil 1250 mg p.o. daily. 6. Lisinopril 10 mg p.o. daily. 7. Insulin NPH 60 units subcu t.i.d. 8. Levofloxacin 500 mg p.o. daily (the patient has been taking since 09/24/19). 9. Lasix 20 mg p.o. daily. ALLERGIES: No known drug allergies. FAMILY HISTORY: No family history of coronary artery disease. His father of lung disease from work exposure. His mother at age 78 of female organ cancer, the patient is uncertain whether ovarian versus cervical or otherwise. SOCIAL HISTORY: The patient lives alone. He tells me that he has only been interacting with one person since the COVID outbreak. He is a retired employee of a [employer]. He denies alcohol use, drug use or smoking. The patient's surrogate medical decision maker is his brother, Macario Meeks, whose phone number is [phone]. The patient is and has no children. REVIEW OF SYSTEMS: An 11-point review of systems was completed. The patient does note that he has been feeling sweats at night, but has not checked his temperature. All other pertinent positives and negatives are above in the HPI and all other systems are negative. PHYSICAL EXAMINATION GENERAL: Morbidly obese white male, sitting on the edge of the hospital bed, appearing comfortable, in no acute distress. VITAL SIGNS: Temperature 97.6 degrees Fahrenheit, heart rate 84, respiratory rate 16, oxygen saturation 95% on room air, blood pressure 154/99. HEENT: Eyes: PERRLA. Sclerae anicteric. ENT: Mucous membranes are moist. LUNGS: Very faint crackles on the right lung base, otherwise clear to auscultation. CARDIO: Irregularly irregular rhythm with irregular rate. I do not appreciate murmurs, rubs, or gallops. ABDOMEN: Soft, nontender, nondistended. EXTREMITIES: Right BKA with prosthetic. The patient has +3 pitting edema pretibially on his left lower extremity. NEURO: The patient is alert and oriented x3. Able to move all extremities. PSYCH: The patient is pleasant and cooperative. PERTINENT STUDIES/LAB DATA: White blood cell count 17.4, hemoglobin 14, hematocrit 42, platelet count 375. D-dimer 227. Sodium 139, potassium 3.7, chloride 104, carbon dioxide 27, anion gap 8, BUN 16, creatinine 0.81, glucose 97, lactic acid 1.1, calcium 9.4, magnesium 2.2. Total bili 0.8, AST 32, ALT 52 , alk phos 127. Troponin taken at [facility] was 0.11 and troponin taken at 1730 at this facility was 0.09. CRP 59.45, BNP 132. Influenza A and B negative. EKG demonstrates at times 3:1 to 4:1 atrial flutter and intermittent normal sinus rhythm, rate is 97 beats per minute, axis is upright. No ST elevations or depressions or concordant T-wave inversions. Chest x-ray, bilateral pulmonary edema with no obvious focal consolidation, though potentially in the right upper lobe, awaiting the radiologist's report at this time. ASSESSMENT AND PLAN: Naveen Meeks is a 64-year-old white male with past medical history significant for morbid obesity, hypertension, diabetes, systolic heart failure, who presents to the emergency department today complaining of shortness of breath with exertion and chest tightness. The patient will be admitted for OBV for: 1. Acute decompensated heart failure. I believe that the patient's symptomatology is provider service representative of acute decompensated heart failure. He does have increased peripheral edema as well as chest x-ray demonstrating pulmonary edema. The patient received a dose of 40 mg of IV Lasix at [facility] prior to his arrival and I will continue 40 mg of IV Lasix b.i.d. It does not appear that this patient is on a beta-priscila and he likely would benefit from this and so I am going to start metoprolol tartrate 25 mg p.o. b.i.d. and it appears at this time that his blood pressure would certainly tolerate that. We are going to continue his lisinopril at a higher dose which will be further discussed below and I have ordered a stat echocardiogram which is pending at this time. 2. New atrial flutter. It appears this patient is having paroxysmal atrial flutter. I will monitor him on telemetry. I will replace his potassium as it is 3.7. He was tachycardic in the 110s at [facility], perhaps this contributed to his heart failure decompensation as he does not have a known history of this to his knowledge or in the medical record. The patient's CHADS2 -VASc score is calculated to be 2 and further conversation regarding the likelihood of him requiring anticoagulation should be discussed further in this hospitalization. 3. Elevated troponin. The patient's troponin is minimally elevated at [facility] to 0.11 and has since down trended to 0.09 and I do wish to check one more time with an additional EKG to ensure that there is no concern for acute coronary syndrome. I do believe this is likely related to ischemic demand of his decompensated heart failure as well as his new atrial fibrillation and I do not believe that he is experiencing acute coronary syndrome. He is currently symptom- free of the previous chest tightness after receiving IV Lasix. 4. Pneumonia. The patient was diagnosed with pneumonia in the emergency department at [facility] 3 days ago and he has been taking Levaquin since that time. His QT interval is on the high end of normal, and I do wish to change this to doxycycline and ceftriaxone at this time to cover for atypicals while he is here in the hospital. He does still have leukocytosis and this infection may be the reason why he is continuing to experience night sweats, but he is currently afebrile. I do not believe his tachycardia and tachypnea are provider service representative of sepsis as I believe this is related to his heart failure. His lactic acid is 1.1 as well. 5. Diabetes. The patient takes NPH insulin 60 units 3 times a day at home. I am going to change this to 30 units b.i.d. with sliding scale insulin and fingersticks and carbohydrate consistent diet. 6. Hypertension. The patient is hypertensive in the emergency department. I do wish to increase the lisinopril to 20 mg a day and I will continue his home dose of amlodipine. 7. FEN: The patient is having a carbohydrate-consistent diet. No need for fluids at this time and I am replacing his potassium with oral potassium to prevent further arrhythmia rather. 8. Code status: The patient is DNR, but okay with intubation if needed and a trial period of mechanical ventilation. 9. DVT prophylaxis: The patient has a DVT risk score of 3 and I have started Lovenox. TIME SPENT: Approximately 55 minutes was spent on this admission, approximately half this time was spent at bedside evaluating the patient and discussing the plan of care. This case has been reviewed by my attending, Dr. Romario Resendiz, and he agrees with this plan of care. BRYAN RAMIRES [id number]/[facility] #: [id number] FAM
[2019-09-27] MEDS ORDERED: Melatonin 3 MG TAB PO PRN (23:41)
[2019-09-28 06:47] LABS: ABS Basophils 0.1 10^3/ul (0-0.2); ABS Eosinophils 0.3 10^3/ul (0-0.6); ABS Monocytes 0.8 10^3/ul (0-0.8); ABS Neutrophils 10.6 10^3/ul (1.5-7.7); Eosinophil % 2.2 %; Hematocrit 40 % (42-52); Hemoglobin 13.2 g/dL (14.0-18.0); Lymphocyte % 14.1 %; Mean Corpuscular HGB Conc 33 g/dL (31-36); Mean Corpuscular Hemoglobin 28 pg (27-31); Mean Corpuscular Volume 84 fL (80-94); Mean Platelet Volume 6.8 fL (7.4-10.4); Platelet Count 357 10^3/uL (150-450); Red Blood Count 4.73 10^6 /uL (4.18-5.48); Red Cell Distribution Width 16 % (10-15); White Blood Count 13.9 10^3/uL (3.5-10.8)
[2019-09-28 07:05] LABS: Albumin 3.4 g/dL (3.2-5.2); Albumin/Globulin Ratio 0.9 (1-3); BUN/Creatinine Ratio 21.3 (8-20); Calcium 9.1 mg/dL (8.6-10.3); EGFR African American 104.5 (>60); EGFR Non-African American 86.3 (>60); Globulin 3.7 g/dL (2-4); HDL Cholesterol 29.3 mg/dL; Potassium 4.3 mmol/L (3.5-5.0); Total Bilirubin 0.7 mg/dL (0.2-1.0); Total Protein 7.1 g/dL (6.4-8.9)
[2019-09-28] MEDS ORDERED: Perflutren Lipid Microsphere* 3 ML VIAL ONE (07:37)
[2019-09-28] MEDS ORDERED: Insulin NPH(*) 1 UNITS UNIT SUBCUT SCH (08:00)
[2019-09-28] MEDS ORDERED: Furosemide IV* 10 MG/ML 10 ML VIAL (100 MG) IV SCH ×2 (08:00)
[2019-09-28] MEDS: Insulin LISPRO* 1 UNITS UNIT SUBCUT SCH ×2 (08:46→12:09)
[2019-09-28] MEDS: DOXYcycline CAP(*) 100 MG PO SCH (08:47)
[2019-09-28] MEDS: Metoprolol Tartrate TAB* 25 MG PO SCH (08:47)
[2019-09-28] MEDS ORDERED: Lisinopril TAB* 10 MG PO SCH ×2 (09:00)
[2019-09-28] MEDS ORDERED: Potassium Chlor TAB* 20 MEQ TAB.ER PO SCH (09:00)
[2019-09-28] MEDS ORDERED: amLODIPine TAB* 5 MG PO SCH (09:00)
[2019-09-28] MEDS ORDERED: Azithromycin TAB* 250 MG PO SCH (09:00)
[2019-09-28] MEDS ORDERED: Multivitamins/Minerals TAB PO SCH (09:00)
[2019-09-28] MEDS ORDERED: Aspirin EC TAB* 81 MG TAB.EC PO SCH (09:00)
--- NOTE | 2019-09-28 10:01 | ECHO ---
*[facility]* [place] [address] Fax #: [phone] Transthoracic Echocardiogram Patient: Naveen Meeks : 1955 Study Date: 09/28/2019 Age: 64 Gender: M HR: 88 bpm Height: 79 in /200.7 cm BSA: 2.99 m^2 Weight: 379.2 lb /172.4 kg BMI: 42.8 kg/m^2 *Radiology Interventional Physician: * Naima Oreilly RDCS RN *Referring Physician: * O'Yoli Aaron *Reading Physician: * Fam King MD Indications: Edema. History: Atrial flutter. Congestive heart failure. PMH: Cardiomyopathy. Risk factors: Hypertension. Diabetes mellitus. Morbidly obese. Conclusions Summary: - Left ventricle: The cavity size is normal. Wall thickness is moderately increased. The estimated ejection fraction is 30-35%. Hypokinesis of the basal inferior myocardium. The anterior wall is not well seen. Cannot rule out other regional wall motion abnormalities due to poor image quality. - Right ventricle: Systolic function is low normal. - Mitral valve: There is no significant regurgitation. - Aortic valve: There is no evidence of stenosis. - Ascending aorta: The ascending aorta is not visualized. - Pericardium, extracardiac: There is no pericardial effusion. - Pulmonary arteries: Systolic pressure can not be accurately estimated. - Compared to study of 01/05/14, the left ventricle function is slightly lower Valve function is the same. Study data: Transthoracic echocardiogram. Procedure: Transthoracic echocardiography was performed. Image quality was poor. The study was technically limited due to body habitus. Intravenous Definity 4 ml was administered to enhance imaging. Complete 2D, spectral Doppler, and color flow Doppler. Location: Bedside. Patient status: Observation. Patient room number: 443-01. Rhythm: Atrial flutter. Findings Left ventricle: The cavity size is normal. Wall thickness is moderately increased. The estimated ejection fraction is 30-35%. Regional wall motion abnormalities: Hypokinesis of the basal inferior myocardium. The anterior wall is not well seen. Cannot rule out other regional wall motion abnormalities due to poor image quality. Left ventricular diastolic function parameters are indeterminate. Right ventricle: The cavity size is mildly dilated. Systolic function is low normal. Left atrium: The atrium is mildly dilated. Right atrium: The atrium is normal in size. Mitral valve: Not well visualized. The leaflets are mildly thickened. There is no evidence of stenosis. There is no significant regurgitation. Aortic valve: Not well visualized. There is no evidence of stenosis. There is no significant regurgitation. Tricuspid valve: Not well visualized. There is no significant regurgitation. Pulmonic valve: Not well visualized. Aorta: Aortic root: The aortic root is mildly dilated. Ascending aorta: The ascending aorta is not visualized. Aortic arch: The aortic arch is appears normal. Pericardium: A prominent pericardial fat pad is present. There is no pericardial effusion. Pulmonary arteries: Not well visualized. Systolic pressure can not be accurately estimated. Systemic veins: Inferior vena cava: The vessel is dilated. There is (< 50%) respiratory change in the IVC dimension. Measurements Left ventricle Value Ref Aortic valve Value Ref CARLA, LAX 5.6 cm 4.2 - Mary diam, ED 2.3 cm ---- 5.8 Peak v, S 1.15 m/sec ---- ESD, LAX (H) 4.8 cm 2.5 - VTI, S 22.5 cm ---- 4.0 Mean grad, S 3.0 mm Hg ---- FS, LAX (L) 13 % 25 - 43 Peak grad, S 5.0 mm Hg ---- PW, ED (H) 1.5 cm 0.6 - LVOT/AV, VTI ratio 0.69 ---- 1.0 IVS/PW, ED 1.09 -------- Mitral valve Value Ref E', lat mary, TDI (L) 6.7 cm/sec >=10.0 Peak E 0.95 m/sec -- -- E/e', lat mary, TDI 14 -------- Decel time 130 ms ---- E', med mary, TDI 10.1 cm/sec >=7.0 Peak grad, D 3.6 mm Hg -- -- E/e', med mary, TDI 9 -------- E', avg, TDI 8.4 cm/sec -------- Pulmonic valve Value Ref E/e', avg, TDI 11 <=14 Peak v, S 0.64 m/sec -- -- Peak grad, S 2.0 mm Hg ---- LVOT Value Ref Peak indira, S 0.82 m/sec -------- Aortic root Value Ref VTI, S 15.6 cm -------- Root diam 3.9 cm <4.9 Mean grad, S 2 mm Hg -------- Aortic arch Value Ref Ventricular septum Value Ref Arch diam 2.8 cm ---- IVS, ED (H) 1.6 cm 0.6 - 1.0 Decending aorta Value Ref Micky peak indira 0.66 m/sec ---- Right ventricle Value Ref CARLA minor ax, A4C (H) 4.0 cm 1.9 - Inferior vena cava Value Ref mid 3.5 Diam 3.2 cm ---- Left atrium Value Ref ML dim, A4C 4.1 cm -------- SI dim, A4C 5.7 cm -------- Right atrium Value Ref ML dim, ES, A4C 3.8 cm 2.6 - 4.4 SI dim, ES, A4C 5.2 cm 3.4 - 5.3 Estimated RAP 15 mm Hg -------- Legend: (L) and (H) darin values outside specified reference range. Prepared and electronically signed by Fam King MD 09/28/2019 10:00
[2019-09-28 11:21] LABS: Troponin I 0.07 ng/mL (<0.03)
[2019-09-28 12:11] VITALS: BP 106/85
--- NOTE | 2019-09-28 17:43 | DS ---
CC: Dr. Home Deng * DISCHARGE SUMMARY: DATE OF ADMISSION: 09/27/19 DATE OF DISCHARGE: 09/28/19 PRIMARY CARE PROVIDER: Dr. Home Deng. ATTENDING PHYSICIAN: Dr. Amy Arroyo.* (DICTATED BY MIRTA TRUJILLO NP) PRIMARY DIAGNOSES: 1. Acute on chronic heart failure with reduced ejection fraction. 2. New-onset atrial flutter. 3. Community-acquired pneumonia. SECONDARY DIAGNOSES: 1. Diabetes mellitus type 2. 2. Hypertension. STUDIES WHILE IN THE HOSPITAL: 1. Chest x-ray on 09/27/19 reads as cardiomegaly with pulmonary vascular congestion and mild pulmonary interstitial edema, improved from 09/27/19. 2. EKG on 09/27/19 shows atrial flutter with a rate of 97. 3. EKG on 09/27/19 shows atrial flutter with predominant 3:1 AV block, rate of 107. No changes from prior. 4. Transthoracic echocardiogram on 09/28/19 reads as the left ventricular cavity size is normal. Wall thickness is moderately increased. The estimated ejection fraction is 30% to 35%. Hypokinesis of the basal inferior myocardium. The anterior wall is not well seen. Cannot rule out other regional wall motion abnormalities due to poor image quality. Right ventricular systolic function is low normal. There is no significant mitral regurg. There is no evidence of aortic stenosis. The ascending aorta is not well visualized. There is no pericardial effusion. Systolic pressure in the pulmonary arteries cannot be accurately estimated. Compared to prior study of 01/05/14, the left ventricular function is slightly lower and valve function is the same. HISTORY OF PRESENT ILLNESS AND HOSPITAL COURSE: Mr. Meeks is a 64-year-old male with past medical history of HFrEF with an EF of 25% in 2013, hypertension , and diabetes, who presented to the emergency room on 09/27/19 with complaints of shortness of breath. Please see the history and physical by BRYAN Ramires for a complete summary of the events leading up to this hospitalization. In short, the patient began developing worsening shortness of breath particularly with exertion, though he did note that he was short of breath while lying. He presented to the emergency room at [facility] on 09/24/19 and was diagnosed with pneumonia. At that time, he was prescribed a course of Levaquin, though his symptoms did not improve. He presented to the [facility] again and was ultimately transferred to our emergency room where he was noted to have leukocytosis and an elevated troponin at 0.09, chest x-ray was concerning for pulmonary edema, and because of these findings, he was admitted by the hospitalist service. The patient was given IV Lasix as he was noted to have significant peripheral edema, and he was started on metoprolol as he was not on a beta-priscila for his heart failure. Regarding the atrial flutter, this does appear to be new onset and he was slightly tachycardic, though this was well controlled with metoprolol , and overnight and this morning, the patient was noted to be in AFib/flutter in the 80s. There were no obvious EKG changes, and the patient denied any chest pain. He had 2 troponins at 0.09 and then a repeat troponin today of 0.07. I do not think this is technical service representative of ACS, but rather demand ischemia from new onset atrial flutter and from CHF exacerbation. CHADS-VASc was noted to be 2, and I did discuss with the patient anticoagulation options, though at this point he would like to consider these options and does not wish to start anticoagulation at this time. Regarding his CHF, EF today was noted to be 30% to 35%, though this is improved from 2014 and peripheral edema is improved from yesterday. The patient denies any shortness of breath today. Regarding his pneumonia, the patient did have a white count on admission which came down today , though still elevated at 13.9. His QTc was slightly prolonged, so he was switched over to ceftriaxone and doxycycline. He has not required any supplemental oxygen. I will note that heart rate was elevated on admission, though I do not think this was indicative of sepsis, and therefore the patient did not meet sepsis criteria due to this pneumonia. On exam, he is alert and oriented x4 without focal neurological deficits. Heart rate is irregular. Lung sounds are clear, but diminished throughout without rhonchi, wheezes, or rales. 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 Mr. Meeks is stable for discharge. Most recent vitals are as follows: Temp 98.2, heart rate 64, respiratory rate 18, oxygen saturation 93% on room air, blood pressure 106/85. DISCHARGE MEDICATIONS: New: 1. Cefdinir 300 mg p.o. b.i.d. x4 days. 2. Doxycycline 100 mg p.o. b.i.d. x4 days. 3. Metoprolol succinate 25 mg p.o. daily. Continued: 1. Aspirin 81 mg p.o. daily. 2. NPH 60 units subcu t.i.d. 3. Probiotic 1 cap p.o. daily. 4. Lisinopril 10 mg p.o. daily. 5. Multivitamin 1 tab p.o. daily. 6. Wayan-3 1250 mg p.o. daily. Changed: Furosemide 30 mg p.o. daily x3 days, then decrease back to home dose of 20 mg. Discontinued: Amlodipine. DISCHARGE PLAN: Mr. Meeks will be discharged home. Activity will be as tolerated. Diet will be heart healthy. Medications as noted above. The patient will need to complete 4 additional days of cefdinir and doxycycline to complete a total of 5 days of antibiotic therapy for his community acquired pneumonia. He has been started on metoprolol as he would certainly benefit from a beta-priscila for his heart failure, and with the addition of this beta- priscila, I do not think he will need amlodipine anymore, so I have discontinued that. He may, however, need to be titrated up on his lisinopril. I have advised the patient to take 30 mg of Lasix for the next 3 days or shorter if he notes that his left lower extremity edema has resolved. He can then return back to his baseline dose of 20 mg daily. He can resume his other usual medications as noted above. He will need to follow up with a nozzle worker and he reports that he was previously seeing a nozzle worker in [place], though has been referred to a nozzle worker who he plans to see here, though he is not sure of the name at this time. He should follow up with his PCP in the next 4 to 7 days. I would ask that the PCP confirm this referral to Cardiology as it is important that he follows up with them closely due to his ejection fraction. He should return to the emergency room or nearest hospital for any worsening of symptoms, shortness of breath, lightheadedness, dizziness, chest discomfort, high fevers, chills, night sweats, loss of consciousness, or any other worrisome signs or symptoms. DISCHARGE CONDITION: Stable. DISCHARGE DISPOSITION: Home. This is a summarized report of a complex medical history and hospital stay. For further details, please see the entire medical record. TIME SPENT: Approximately 45 minutes was spent on this discharge. MIRTA TRUJILLO, PHARMACY INNOVATION ASSISTANT [id number]/CPS #: [id number] FAM
== END 2019-09-28 13:50 | disposition home or self-care (01) ==
LOC: ED 16:59 → MEDTELE 17:58
PROVIDERS: ADMIT Internal Medicine; ATTEND Hospitalist
DX: I11.0 Hypertensive heart disease with heart failure (principal); I50.23 Acute on chronic systolic (congestive) heart failure; I48.92 Unspecified atrial flutter; J18.9 Pneumonia, unspecified organism; E11.9 Type 2 diabetes mellitus without complications; E66.01 Morbid (severe) obesity due to excess calories; R07.89 Other chest pain; I25.2 Old myocardial infarction; R79.89 Other specified abnormal findings of blood chemistry; R94.31 Abnormal electrocardiogram [ECG] [EKG]; Z79.82 Long term (current) use of aspirin; Z79.899 Other long term (current) drug therapy; Z89.511 Acquired absence of right leg below knee; Z79.4 Long term (current) use of insulin; Z86.73 Personal history of transient ischemic attack (TIA), and cerebral infarction without residual deficits; Z95.5 Presence of coronary angioplasty implant and graft
CPT/HCPCS: 36415; 71045; 80053; 80061; 83036; 83605; 83735; 83880; 84484; 85025; 85379; 86140; 93005; 93306; 96365; 96372; 96375; 99284; A9270-GY; C8929; G0378; J0696; J1650; J1940

== ENCOUNTER 2021-02-01 09:16 | Inpatient (IN) ==
[2021-02-01] MEDS ORDERED: Piperacillin/Tazobac ADVAN 3.375 GM in NS 0.9% 100 ml BAG 100 ML IV ONE (10:22)
[2021-02-01 10:44] LABS: Venous Bicarbonate HCO3 27.7 mmol/L (24-28)
[2021-02-01 10:52] LABS: ABS Basophils 0.1 10^3/ul (0-0.2); ABS Eosinophils 0.1 10^3/ul (0-0.6); ABS Lymphocytes 1.7 10^3/ul (1.0-4.8); ABS Monocytes 0.7 10^3/ul (0-0.8); ABS Neutrophils 8.8 10^3/ul (1.5-7.7); Eosinophil % 1.2 %; Hematocrit 37 % (42-52); Hemoglobin 12.4 g/dL (14.0-18.0); Lymphocyte % 14.8 %; Mean Corpuscular HGB Conc 33 g/dL (31-36); Mean Corpuscular Hemoglobin 28 pg (27-31); Mean Corpuscular Volume 85 fL (80-94); Mean Platelet Volume 6.8 fL (7.4-10.4); Platelet Count 309 10^3/uL (150-450); Red Blood Count 4.42 10^6 /uL (4.18-5.48); Red Cell Distribution Width 17 % (10-15); White Blood Count 11.5 10^3/uL (3.5-10.8)
[2021-02-01 11:00] LABS: Activated Partial Thrombo Time 47.8 seconds (26.0-38.0); INR 2.36 (0.86-1.15)
[2021-02-01 11:08] LABS: ALT 27 U/L (7-52); AST 21 U/L (13-39); Albumin 3.6 g/dL (3.2-5.2); Albumin/Globulin Ratio 1.1 (1-3); Alkaline Phosphatase 126 U/L (35-149); Anion Gap 7 mmol/L (2-11); Blood Urea Nitrogen 17 mg/dL (6-24); CO2 Carbon Dioxide 25 mmol/L (22-32); Calcium 8.3 mg/dL (8.6-10.3); Chloride 105 mmol/L (101-111); EGFR African American 126.9 (>60); EGFR Non-African American 104.8 (>60); Globulin 3.2 g/dL (2-4); Glucose 250 mg/dL (70-100); Indirect Bilirubin 0.4 mg/dL (0.3-1.0); Potassium 3.7 mmol/L (3.5-5.0); Sodium 137 mmol/L (135-145); Total Protein 6.8 g/dL (6.4-8.9)
[2021-02-01 11:14] LABS: Troponin I 0.05 ng/mL (<0.03)
[2021-02-01 11:30] LABS: C Reactive Protein 28.14 mg/L (<8.01)
[2021-02-01] MEDS ORDERED: Furosemide 20 mg/2 ml IV VIAL IV SLOW PU ONE (11:55)
[2021-02-01 12:11] LABS: Influenza A Molecular Negative (Negative); Influenza B Molecular Negative (Negative)
[2021-02-01 13:42] LABS: Urine Bacteria Absent (Absent); Urine Red Blood Cell Absent (Absent); Urine Squamous Epithelial Cell Present (Absent); Urine White Blood Cell Trace(0-5/hpf) (Absent)
[2021-02-01 13:58] LABS: Urine Appearance Clear; Urine Bilirubin Negative (Negative); Urine Blood Negative (Negative); Urine Color Yellow; Urine Glucose Negative (Negative); Urine Ketones Negative (Negative); Urine Nitrite Negative (Negative); Urine Protein 1+(30 mg/dL) (Negative); Urine Specific Gravity 1.015 (1.002-1.030); Urine Urobilinogen Negative (Negative)
[2021-02-01] MEDS ORDERED: NON FORMULARY MED (Insulin Aspart U-100 [Novolog Flexpen U-100 Insulin] 100 unit/mL (3 mL) SUBCUT SCH (14:45)
[2021-02-01] MEDS ORDERED: Dextrose 50% Syringe 50 ml 25 GM/50 ML SYRINGE IV PUSH PRN (18:26)
[2021-02-01 21:02] LABS: Troponin I 0.07 ng/mL (<0.03)
[2021-02-02 05:45] LABS: ABS Basophils 0.1 10^3/ul (0-0.2); ABS Eosinophils 0.1 10^3/ul (0-0.6); ABS Lymphocytes 1.6 10^3/ul (1.0-4.8); ABS Monocytes 0.8 10^3/ul (0-0.8); ABS Neutrophils 8.1 10^3/ul (1.5-7.7); Eosinophil % 1.4 %; Hematocrit 37 % (42-52); Hemoglobin 12.5 g/dL (14.0-18.0); Lymphocyte % 14.5 %; Mean Corpuscular HGB Conc 34 g/dL (31-36); Mean Corpuscular Hemoglobin 28 pg (27-31); Mean Corpuscular Volume 84 fL (80-94); Mean Platelet Volume 6.6 fL (7.4-10.4); Platelet Count 317 10^3/uL (150-450); Red Blood Count 4.41 10^6 /uL (4.18-5.48); Red Cell Distribution Width 18 % (10-15); White Blood Count 10.7 10^3/uL (3.5-10.8)
[2021-02-02] MEDS ORDERED: Furosemide 40 mg/4 ml IV VIAL IV SCH (09:00)
[2021-02-02] MEDS: Insulin NPH 100 units/ml SUBCUT SCH ×3 (09:24→17:27)
[2021-02-02] MEDS: ceFAZolin VIAL 2 GM in NS 0.9% 100 ml BAG 100 ML IVPB SCH ×3 (09:25→17:28)
[2021-02-02] MEDS ORDERED: Perflutren Lipid Microsphere 3 ML VIAL ONE (11:28)
[2021-02-02 14:01] LABS: Troponin I 0.06 ng/mL (<0.03)
[2021-02-03] MEDS: ceFAZolin VIAL 2 GM in NS 0.9% 100 ml BAG 100 ML IVPB SCH ×2 (02:20→10:23)
[2021-02-03] MEDS ORDERED: Furosemide 100 mg/10 ml IV VIAL IV SCH ×2 (06:00→09:00)
[2021-02-03 06:27] LABS: ABS Basophils 0.1 10^3/ul (0-0.2); ABS Eosinophils 0.2 10^3/ul (0-0.6); ABS Lymphocytes 1.8 10^3/ul (1.0-4.8); ABS Monocytes 0.9 10^3/ul (0-0.8); Eosinophil % 1.8 %; Hematocrit 36 % (42-52); Hemoglobin 12.4 g/dL (14.0-18.0); Lymphocyte % 16.1 %; Mean Corpuscular HGB Conc 34 g/dL (31-36); Mean Corpuscular Hemoglobin 29 pg (27-31); Mean Corpuscular Volume 84 fL (80-94); Mean Platelet Volume 6.6 fL (7.4-10.4); Nucleated Red Blood Cells % 0.1; Platelet Count 296 10^3/uL (150-450); Red Blood Count 4.32 10^6 /uL (4.18-5.48); Red Cell Distribution Width 17 % (10-15)
[2021-02-03 06:37] LABS: Calcium 8.7 mg/dL (8.6-10.3); EGFR African American 114.5 (>60); EGFR Non-African American 94.6 (>60); Potassium 3.7 mmol/L (3.5-5.0)
[2021-02-03] MEDS ORDERED: Potassium Chlor 20 meq TAB.ER PO ONE (08:10)
[2021-02-03 09:05] LABS: Magnesium 2.2 mg/dL (1.9-2.7)
[2021-02-03] MEDS: Insulin NPH 100 units/ml SUBCUT SCH (09:23)
[2021-02-03 10:08] VITALS: BP 141/49
[2021-02-03] MEDS ORDERED: Insulin NPH 100 units/ml SUBCUT SCH (15:00)
== END 2021-02-03 11:45 | disposition home or self-care (01) | DRG 291 ==
LOC: ED 09:16 → MEDTELE 13:55
PROVIDERS: ADMIT Student in an Organized Health Care Education/Training Program; ATTEND Internal Medicine

== ENCOUNTER 2021-06-18 15:49 | Inpatient (IN) ==
[2021-06-18 17:04] LABS: ABS Basophils 0.1 10^3/ul (0-0.2); ABS Eosinophils 0.1 10^3/ul (0-0.6); ABS Lymphocytes 1.2 10^3/ul (1.0-4.8); ABS Monocytes 0.6 10^3/ul (0-0.8); ABS Neutrophils 9.7 10^3/ul (1.5-7.7); Eosinophil % 0.8 %; Hematocrit 40 % (42-52); Hemoglobin 13.1 g/dL (14.0-18.0); Lymphocyte % 10.3 %; Mean Corpuscular HGB Conc 33 g/dL (31-36); Mean Corpuscular Hemoglobin 27 pg (27-31); Mean Corpuscular Volume 83 fL (80-94); Mean Platelet Volume 6.9 fL (7.4-10.4); Platelet Count 269 10^3/uL (150-450); Red Blood Count 4.84 10^6 /uL (4.18-5.48); Red Cell Distribution Width 18 % (10-15); White Blood Count 11.7 10^3/uL (3.5-10.8)
[2021-06-18 17:16] LABS: ALT 18 U/L (7-52); AST 20 U/L (13-39); Albumin 3.9 g/dL (3.2-5.2); Albumin/Globulin Ratio 1.1 (1-3); Alkaline Phosphatase 151 U/L (35-149); Anion Gap 6 mmol/L (2-11); Blood Urea Nitrogen 21 mg/dL (6-24); CO2 Carbon Dioxide 27 mmol/L (22-32); Calcium 9.2 mg/dL (8.6-10.3); Chloride 103 mmol/L (101-111); Globulin 3.4 g/dL (2-4); Glucose 436 mg/dL (70-100); Potassium 4.1 mmol/L (3.5-5.0); Sodium 136 mmol/L (135-145); Total Protein 7.3 g/dL (6.4-8.9); eGFR CKD-EPI 95.1 (>60)
[2021-06-18] MEDS ORDERED: Lactated Ringers 1000 ml BAG 1,000 ML IV ONE (17:28)
[2021-06-18] MEDS ORDERED: Dextrose 50% Syringe 50 ml 25 GM/50 ML SYRINGE IV PUSH PRN (17:28)
[2021-06-18 17:32] LABS: Troponin I 0.06 ng/mL (<0.03)
[2021-06-18] MEDS ORDERED: Bupivacaine 0.5% 50 ML MDV VIAL INJ ONE (19:30)
[2021-06-18] MEDS ORDERED: Bupivacaine 0.5% PF 10 ML SDV VIAL INJ ONE (20:00)
[2021-06-18 21:52] LABS: Troponin I 0.05 ng/mL (<0.03)
[2021-06-18] MEDS ORDERED: Cefepime 1 GM in Dextrose 1 GM/50 ML BAG IV SCH (23:45)
[2021-06-18] MEDS ORDERED: Vancomycin 2,000 MG in NS 0.9% 500 ml BAG 500 ML IVPB ONE (23:45)
[2021-06-18] MEDS ORDERED: Iodixanol (CONTRAST) 320 MG/ML 100 ML SDV IV ONE (23:54)
[2021-06-19] MEDS ORDERED: Cefepime 1 GM IV - ED ONCE IV ONE (01:00)
[2021-06-19] MEDS ORDERED: Vancomycin per Pharmacy 1 EA NOTE FOLLOW UP SCH (01:00)
[2021-06-19 02:23] LABS: Urine Appearance Clear; Urine Bilirubin Negative (Negative); Urine Blood Negative (Negative); Urine Color Yellow; Urine Glucose 3+(>=500 mg/dL) (Negative); Urine Ketones Negative (Negative); Urine Nitrite Negative (Negative); Urine Protein 1+(30 mg/dL) (Negative); Urine Specific Gravity 1.033 (1.002-1.030); Urine Urobilinogen Negative (Negative)
[2021-06-19 02:44] LABS: Urine Bacteria Absent (Absent); Urine Red Blood Cell Absent (Absent); Urine Squamous Epithelial Cell Present (Absent); Urine White Blood Cell Trace(0-5/hpf) (Absent)
[2021-06-19 06:24] LABS: ABS Lymphocytes 0.6 10^3/ul (1.0-4.8); ABS Monocytes 0.1 10^3/ul (0-0.8); ABS Neutrophils 11.9 10^3/ul (1.5-7.7); Hematocrit 41 % (42-52); Hemoglobin 13.4 g/dL (14.0-18.0); Lymphocyte % 4.7 %; Mean Corpuscular HGB Conc 32 g/dL (31-36); Mean Corpuscular Hemoglobin 27 pg (27-31); Mean Corpuscular Volume 84 fL (80-94); Platelet Count 272 10^3/uL (150-450); Red Blood Count 4.93 10^6 /uL (4.18-5.48); Red Cell Distribution Width 18 % (10-15); White Blood Count 12.6 10^3/uL (3.5-10.8)
[2021-06-19 06:46] LABS: Albumin/Globulin Ratio 1.1 (1-3); Calcium 8.9 mg/dL (8.6-10.3); Globulin 3.6 g/dL (2-4); Potassium 4.9 mmol/L (3.5-5.0); Total Bilirubin 1.1 mg/dL (0.2-1.0); Total Protein 7.6 g/dL (6.4-8.9); eGFR CKD-EPI 96.8 (>60)
[2021-06-19] MEDS ORDERED: Insulin GLARGINE 100 un/ml 10 ml VIAL SUBCUT SCH ×2 (09:00)
[2021-06-19] MEDS ORDERED: Furosemide 40 mg/4 ml IV VIAL IV ONE (09:00)
[2021-06-19] MEDS: Multivitamins/Minerals TAB PO SCH (09:43)
[2021-06-19] MEDS ORDERED: Dextrose 50% Syringe 50 ml 25 GM/50 ML SYRINGE IV PUSH PRN (10:14)
[2021-06-19] MEDS ORDERED: Insulin GLARGINE 100 un/ml 10 ml VIAL SUBCUT ONE (10:15)
[2021-06-19] MEDS ORDERED: Vancomycin 1,750 MG in NS 0.9% 500 ml BAG 500 ML IVPB SCH (12:00)
[2021-06-19 12:14] LABS: C Reactive Protein 21.57 mg/L (<8.01); Glucose Confirmatory 480 mg/dL (70-100)
[2021-06-19] MEDS ORDERED: Perflutren Lipid Microsphere 3 ML VIAL ONE (13:55)
[2021-06-19] MEDS: Cefepime 2 GM in Dextrose 2 GM/50 ML BAG IV SCH (14:45)
[2021-06-19] MEDS: Vancomycin 1,750 MG in NS 0.9% 500 ml BAG 500 ML IVPB SCH (16:36)
[2021-06-19 17:34] LABS: Glucose Confirmatory 461 mg/dL (70-100)
[2021-06-20] MEDS: Cefepime 2 GM in Dextrose 2 GM/50 ML BAG IV SCH ×2 (00:29→13:09)
[2021-06-20] MEDS: Vancomycin 1,750 MG in NS 0.9% 500 ml BAG 500 ML IVPB SCH ×2 (06:00→17:02)
[2021-06-20 06:24] LABS: Hematocrit 39 % (42-52); Hemoglobin 12.6 g/dL (14.0-18.0); Mean Corpuscular HGB Conc 33 g/dL (31-36); Mean Corpuscular Hemoglobin 27 pg (27-31); Mean Corpuscular Volume 84 fL (80-94); Mean Platelet Volume 7.1 fL (7.4-10.4); Platelet Count 288 10^3/uL (150-450); Red Blood Count 4.65 10^6 /uL (4.18-5.48); Red Cell Distribution Width 19 % (10-15)
[2021-06-20 06:36] LABS: Magnesium 2.2 mg/dL (1.9-2.7); eGFR CKD-EPI 96.8 (>60)
[2021-06-20] MEDS ORDERED: Insulin GLARGINE 100 un/ml 10 ml VIAL SUBCUT SCH ×2 (09:00)
[2021-06-20] MEDS: Insulin GLARGINE 100 un/ml 10 ml VIAL SUBCUT SCH (09:05)
[2021-06-20] MEDS: Multivitamins/Minerals TAB PO SCH (09:06)
[2021-06-20] MEDS: Heparin 5000 UNITS/ML 1 mL VIAL SUBCUT SCH ×2 (13:17→23:16)
[2021-06-21] MEDS: Cefepime 2 GM in Dextrose 2 GM/50 ML BAG IV SCH ×2 (00:05→12:30)
[2021-06-21] MEDS: Vancomycin 1,750 MG in NS 0.9% 500 ml BAG 500 ML IVPB SCH (05:54)
[2021-06-21] MEDS: Heparin 5000 UNITS/ML 1 mL VIAL SUBCUT SCH (05:54)
[2021-06-21 08:34] LABS: Hematocrit 39 % (42-52); Hemoglobin 12.9 g/dL (14.0-18.0); Mean Corpuscular HGB Conc 33 g/dL (31-36); Mean Corpuscular Hemoglobin 27 pg (27-31); Mean Corpuscular Volume 84 fL (80-94); Mean Platelet Volume 6.9 fL (7.4-10.4); Platelet Count 253 10^3/uL (150-450); Red Blood Count 4.71 10^6 /uL (4.18-5.48); Red Cell Distribution Width 19 % (10-15); White Blood Count 10.5 10^3/uL (3.5-10.8)
[2021-06-21] MEDS: Multivitamins/Minerals TAB PO SCH (08:50)
[2021-06-21] MEDS: Insulin GLARGINE 100 un/ml 10 ml VIAL SUBCUT SCH (08:54)
[2021-06-21 08:55] LABS: Calcium 8.9 mg/dL (8.6-10.3); Potassium 4.3 mmol/L (3.5-5.0); eGFR CKD-EPI 95.1 (>60)
[2021-06-21 10:58] VITALS: BP 129/80
[2021-06-21] MEDS ORDERED: Vancomycin Trough Check NOTE FOLLOW UP ONE (16:30)
== END 2021-06-21 16:15 | disposition home or self-care (01) | DRG 638 ==
LOC: EDHOLD 15:49 → ED 15:49 → SUATTDRO 23:04 → MEDTELE 06-19 07:05
PROVIDERS: ADMIT Student in an Organized Health Care Education/Training Program; ATTEND Hospitalist